=== PATIENT | male | born 2000 | race Caucasian/White ===

== ENCOUNTER 2022-06-09 14:46 | Emergency (ER) | payer MEDICAID, SELFPAY ==
[2022-06-09 14:47] VITALS: BP 167/94; PULSE 107; RESP 16; TEMP 36.4; O2SAT 99; BMI 27.4
--- NOTE | 2022-06-09 15:26 | EDS_ITS ---
HPI History of Present Illness Chief Complaint: Sore Throat Informant: patient Onset/Context/Timing Onset: Days (4) Context: Sudden Onset Timing: Continuous Quality: Sharp, raw Location: Throat Worsened by: Swallowing Relieved by: Diet modifications Narrative Narrative: Patient presents with episodes of hemoptysis that have been constant for the past 4 days. Patient states he started coughing up some blood 3 days ago. Patient admits to some fevers up to 101 at night. Patient admits to some sweats with these. Patient also admits to a sore throat. Patient states he has a history of gastroesophageal reflux disease and thinks this is getting worse. Patient states his primary care physician referred him to the emergency department for possible ulcer. Patient admits to some shortness of breath when his symptoms began. Patient states this is improving. Patient denies any chest pain. Patient had nasal septoplasty approximately 2 months ago and has not had any complications from that. [facility] Medical History (Updated 06/09/22 @ 17:[address] Nir Ochoa DO) GERD (gastroesophageal reflux disease) Home Medications sucralfate 1 gram tablet (Carafate) 1 g PO BID #14 tabs 06/09/22 [Rx Last Taken Unknown] Allergy/AdvReac Type Severity Reaction Status Date / Time No Known Allergies Allergy Verified 06/09/22 14:49 Surgical History Hx of nasal septoplasty Social History Smoking Status: Never smoker ROS ROS ED Constitutional Constitutional ED: Reports fever(s) and sweats; Denies chills Eyes Eyes: Denies blurry vision or change in vision ENT ENT ED: Reports sore throat; Denies rhinorrhea Cardiovascular Cardiovascular: Denies chest pain or palpitations Respiratory/Chest Respiratory/Chest: Reports cough, dyspnea and hemoptysis Gastrointestinal Gastrointestinal: Reports nausea; Denies vomiting Genitourinary Genitourinary ED: Denies dysuria or hematuria Musculoskeletal Musculoskeletal: Denies back pain or neck pain Integumentary Denies abscess or rash Neurologic Neurologic: Denies headache(s) or weakness Allergic/Immunologic Allergic/Immunologic ED: Denies mouth swelling or urticaria EXAM Physical Exam Const Vital Signs: 06/09/22 14:47 06/09/22 17:08 Temperature 97.6 F L Temperature Source Temporal Pulse Rate 107 H Respiratory Rate 16 16 Blood Pressure 167/94 H Blood Pressure Mean 118 Pulse Ox 99 Oxygen Delivery Method Room Air Positive well nourished and well developed General Appearance ED: well developed HEENT Reports moist mucous membranes HEENT Narrative: There is some mild erythema of the oropharynx. There are no exudates noted. Eyes PERRL and EOMs intact bilaterally Neck supple and no JVD Resp normal respiratory effort and clear to auscultation bilaterally Cardio regular rate, regular rhythm and no murmurs GI normal to inspection, nondistended, normoactive bowel sounds and non-tender Palpation: soft Extremity normal to inspection General Extremety ED: Negative for edema or tenderness General Extremity: Negative for edema Neuro oriented x3, CN's II-XII intact bilaterally and no sensory deficits noted Sensorium / Orientation: alert Motor Exam: strength 5/5 throughout Psych mental status grossly normal Skin no rashes or lesions noted MDM MDM MDM Narrative Medical decision making narrative: Differential diagnosis includes strep pharyngitis, viral pharyngitis, pulmonary embolism, postnasal bleeding, pneumonia, cancer, and coagulopathy. Chest x-ray will be obtained to assess for pneumonia and mass. CBC will be obtained to assess for leukocytosis and anemia. Basic metabolic profile will be obtained to assess for electrolyte abnormality and renal function. PT was INR and PTT will be obtained to assess for coagulopathy. Rapid strep will be obtained to assess for streptococcal infection. COVID-19 antigen will be obtained to assess for COVID infection. Influenza A and influenza B antigens will be obtained to assess for influenza infection. Lab Data Lab results narrative: CBC was reviewed and was within normal limits. Basic metabolic profile was reviewed and was within normal limits. PT with INR and PTT were reviewed and were within normal limits. D-dimer was reviewed and was elevated at 1.06. Rapid strep was reviewed and was negative. COVID-19 rapid antigen was reviewed and was negative. Influenza A and influenza B rapid antigens were reviewed and were negative. Labs: Laboratory Results - last 24 hr 06/09/22 06/09/22 06/09/22 15:34 15:34 15:34 WBC 10.2 RBC 5.29 Hgb 15.7 Hct 45.9 MCV 86.8 MCH 29.7 MCHC 34.2 RDW Std Deviation 41.1 RDW Coeff of Rosaura 13.2 Plt Count 398 MPV 9.7 Immature Gran % (Auto) 0.500 Neut % (Auto) 54.6 Lymph % (Auto) 35.5 [place] % (Auto) 7.1 Eos % (Auto) 1.4 Baso % (Auto) 0.9 Absolute Neuts (auto) 5.6 Absolute Lymphs (auto) 3.62 Nucleated RBC % 0 PT 13.1 INR 1.0 APTT 32.5 D-Dimer Quant (PE/DVT) 1.06 H* Sodium 140 Potassium 4.2 Chloride 103 Carbon Dioxide 31.0 Anion Gap 6 BUN 13 Creatinine 1.06 Estim Creat Clear Calc 93.08 Est GFR (MDRD) Af Amer 114 Est GFR (MDRD) Non-Af 94 BUN/Creatinine Ratio 12.3 Glucose 96 Calcium 9.6 Radiography Diagnostic Testing: Clinical Impression(s) from Imaging Studies Chest X-Ray 06/09/22 15:52 IMPRESSION: No radiographic evidence of acute cardiopulmonary disease. Electronically Signed: Bijan May MD at 16:24 EST , Chest CTA 06/09/22 16:50 IMPRESSION: Negative CTA chest. Electronically Signed: Bijan May MD at 17:27 EST , PA and lateral chest x-ray was obtained. There are 2 views. On my independent interpretation, lung de dios are clear. There is normal cardiac silhouette. Bony thorax is normal. There is no acute process noted. Radiologist also interpreted the x-ray and agrees. Because of the elevated D-dimer, CTA of the chest was obtained. On my independent review, there is no evidence of pulmonary embolism, pneumothorax, or pneumonia. Radiologist also reviewed the CT scan and agrees. There is no evidence of pulmonary embolism or aortic dissection. Treatment and Re-Evaluation Narrative: Patient was given IV fluids. Patient is feeling better on reevaluation. Patient was advised of his findings. Due to the patient's concern for peptic ulcer disease and reflux, patient was given a prescription for Carafate to take in addition to his omeprazole. Patient was instructed to follow-up with his primary care physician in 5 to 7 days. Patient understood and was agreeable with the plan. All questions were answered. Discharge Plan Triage Chief Complaint: Sore Throat ED Provider: Nir Ochoa Dx/Rx/DC Orders Clinical Impression: Hemoptysis, GERD (gastroesophageal reflux disease) Instructions: ED GERD (Adult), ED Hemoptysis Prescriptions: New sucralfate [Carafate] 1 gram tablet 1 g PO BID Qty: 14 0RF Primary Care Provider: REJI GERMAIN Referrals: REJI GERMAIN [Other] - 5-7 Days Disposition Disposition: Home, Self Care
[2022-06-09] MEDS: 0.9% Normal Saline 1,000 ML 1000 ML IV (15:37)
[2022-06-09 15:50] LABS: Absolute Lymphocyte Count 3.62 X10^3/uL (0.83-4.51); Absolute Neutrophil Count 5.6 X10^3/uL (2.0-7.7); Basophil# 0.09 X10^3/uL; Basophil% 0.9 % (0-1); Eosinophil# 0.14 X10^3/uL; Eosinophils% 1.4 % (0-5); Hematocrit 45.9 % (40-54); Hemoglobin 15.7 g/dL (13.0-16.5); Lymphocyte # 3.62 X10^3/ul (0.83-4.51); Lymphocyte % 35.5 % (19-41); Mean Corp Hgb Conc 34.2 g/dL (32-36); Mean Corpuscular Hgb 29.7 pg (27.0-32.0); Mean Corpuscular Volume 86.8 fL (80-94); Mean Platelet Vol. 9.7 fl (6.2-12.0); Monocyte# 0.72 X10^3/uL; Monocyte% 7.1 % (0-10); NRBC Flagged by Analyzer 0 % (0-5); Neutrophil # 5.59 X10^3/uL (2.7-7.7); Neutrophil % 54.6 % (47-70); Platelet Count 398 K/mm3 (150-450); RBC Distribution Width CV 13.2 % (11.6-14.6); RBC Distribution Width SD 41.1 fl (35.1-43.9); Red Blood Count 5.29 M/mm3 (4.6-6.2); White Blood Count 10.2 K/mm3 (4.4-11.0)
--- NOTE | 2022-06-09 15:52 | RAD_ITS ---
EXAM: XR CHEST, 2 VIEWS CLINICAL INDICATION: hemoptysis TECHNIQUE: Frontal and lateral views of the chest. This report was created using [employer] report generation technology. COMPARISON: None. FINDINGS: LUNGS AND PLEURAL SPACES: Unremarkable. No consolidation or edema. No pneumothorax. No effusion. HEART: Unremarkable. Cardiac silhouette not enlarged. MEDIASTINUM: Central airways and mediastinal contour are unremarkable. BONES/JOINTS: Unremarkable. SOFT TISSUES: Unremarkable. RAD/Chest PA and Lateral IMPRESSION: No radiographic evidence of acute cardiopulmonary disease. Electronically Signed: Bijan May MD at 16:24 EST ,
[2022-06-09 16:20] LABS: Anion Gap 6 (5-15); BUN 13 mg/dL (7-18); BUN/Creat Ratio 12.3 RATIO (10-20); Calcium,Total 9.6 mg/dL (8.5-10.1); Chloride 103 mmol/L (98-107); Creatinine, Serum 1.06 mg/dL (0.70-1.30); EST Glomerular Filtration Rate 94 mL/min (>60); Est Glom Filt Rate - Afr Amer 114 mL/min (>60); Estimated Creatinine Clearance 93.08 ml/min; Glucose 96 mg/dL (74-106); Potassium 4.2 mmol/L (3.5-5.1); Sodium Level 140 mmol/L (136-145)
[2022-06-09 16:23] LABS: Prothrombin Time (Protime)PT. 13.1 SECONDS (11.7-14.9)
[2022-06-09 16:24] LABS: Partial Thromboplast Time 32.5 Seconds (24.1-36.2)
[2022-06-09 16:49] LABS: D-Dimer Quantitative (DVT/PE) 1.06 FEU/ug/m (0.27-0.49)
--- NOTE | 2022-06-09 16:50 | CT_ITS ---
EXAM: CT ANGIOGRAPHY CHEST WITHOUT AND WITH INTRAVENOUS CONTRAST CLINICAL INDICATION: Elevated D-dimer TECHNIQUE: Helically acquired angiography images were obtained of the chest without and with intravenous contrast. This CT exam was performed using one or more of the following dose reduction techniques: automated exposure control, adjustment of the mA and/or kV according to patient size, and/or use of iterative reconstruction technique. This report was created using [employer] report generation technology. MIP reconstructed images were created and reviewed. CONTRAST: IV 100mL [id number] RADIATION DOSE: CTDIvol = 11.15 mGy, DLP = 308.43 mGy-cm COMPARISON: None. FINDINGS: PULMONARY ARTERIES: Unremarkable. Normal in caliber. No evidence of pulmonary embolism. AORTA: Unremarkable. Normal in caliber. No evidence of dissection. GREAT VESSELS OF AORTIC ARCH: Unremarkable. Normal in caliber. No evidence of dissection. LUNGS AND PLEURAL SPACES: Unremarkable. No mass. No consolidation or edema. No pleural effusion or thickening. No pneumothorax. HEART: Unremarkable. Heart size is normal. No pericardial effusion. No signs of right heart strain, ratio of right ventricle to left ventricle measures less than 1. MEDIASTINUM: Unremarkable. No mediastinal or hilar adenopathy. Esophagus is unremarkable. No hiatal hernia. THYROID: Unremarkable. No thyroid lesions. BONES/JOINTS: Unremarkable. No suspicious lytic or blastic abnormality. CT/CTA Chest W/WO Contrast IMPRESSION: Negative CTA chest. Electronically Signed: Bijan May MD at 17:27 EST Reading Location ID and State: [facility] / [place] , Service support ,
[2022-06-09 17:08] VITALS: RESP 16
== END 2022-06-09 18:20 | disposition home or self-care (01) ==
PROVIDERS: Emergency Provider Emergency Medicine; Visit Provider Emergency Medicine
DX: R04.2 Hemoptysis (principal); K21.9 Gastro-esophageal reflux disease without esophagitis; R06.02 Shortness of breath; R61 Generalized hyperhidrosis
CPT/HCPCS: 71046; 71275; 80048; 85025; 85379; 85610; 85730; 87428; 87880; 96360; 99283; J7030; Q9967; A4216